=== PATIENT | female | born 1970 | race Caucasian/White ===

== ENCOUNTER → 2019-10-06 | Outpatient (CLI) | payer OTHER ==
[~2019-10-06] MED LIST: NOHOMEMEDICATIONS; NORCO 5-325 TA1 EACH PO; PROTONIX 20 MG20 M1 PO
== END ==
LOC: RAD 07:25 → EDSTATUS 07:26 → RAD 12:33
DX: Z12.31 Encounter for screening mammogram for malignant neoplasm of breast (principal)

== ENCOUNTER → 2020-12-10 | Outpatient (CLI) | payer OTHER | LOC: BC 09:59 | PROVIDERS: ATTEND Family Medicine | DX: Z12.31 Encounter for screening mammogram for malignant neoplasm of breast (principal) ==